=== PATIENT | female | born 1955 | race Caucasian/White ===

== ENCOUNTER → 2020-08-28 15:01 | Outpatient (CLI) | payer MEDICARE, SELFPAY ==
--- NOTE | 2020-08-28 15:36 | MRI_ITS ---
STUDY: MRI ORBITS WITH AND WITHOUT CONTRAST REASON FOR EXAM: Female, 65 years old. DIPLOPIA bilateral EYES X 4 WEEKS TECHNIQUE: Standardized fat and water weighted pulse sequences were obtained in all 3 orthogonal planes, pre-and post contrast administration. 15CC IV DOTAREM was administered for the contrast portion of the examination. COMPARISON: None. FINDINGS: Examination is mildly degraded by motion artifact, severely affecting coronal views of the orbits. Diagnostic information is available. Normal bilateral globes. Normal bilateral optic nerve sheath complexes and optic nerves. Normal bilateral intraconal and extraconal spaces. Normal bilateral extraocular muscles. Normal optic chiasm and post-chiasmatic tracts. Normal sella turcica, pituitary gland, infundibular stalk, and hypothalamus. Normal bilateral cavernous sinuses. Normal tectal plate and pineal gland. Normal flow voids within the major intracranial circulation suggesting patency by spin echo criteria. Normal size of the ventricles and extra-axial spaces for the patient''s age. Normal white matter tracts of the supratentorial brain. Normal bilateral basal ganglia. Normal thalami. There is no extra-axial fluid accumulation. Normal midbrain, adelaide and medulla. Normal cerebellum. Normal basal cisterns. MRI/Brain W/WO Contrast IMPRESSION: 1. Normal brain. 2. Normal orbits. Electronically Signed: Juan Gomez MD at 20:22 EDT Tel , Service support ,
[2020-08-28 15:46] LABS: CREATININE FINGERSTICK 0.9 mg/dL (0.55-1.02); EGFR FINGERSTICK > 60.0000 mL/min (>60)
== END ==
PROVIDERS: PCP Preventive Medicine Occupational Medicine; Referring Provider Ophthalmology; Visit Provider Ophthalmology
DX: H53.2 Diplopia (principal)
CPT/HCPCS: 70553; A9575

== ENCOUNTER → 2020-09-10 13:32 | Outpatient (CLI) | payer MEDICARE, SELFPAY ==
--- NOTE | 2020-09-10 13:33 | CDU_ITS ---
Reason For Study: DIPLOPIA Rt. Velocities/BP Lt. Velocities/BP Prox CCA 70/10 cm/sec. Prox CCA 117/25 cm/sec. Mid CCA 95/23 cm/sec. Mid CCA 87/20 cm/sec. Dist CCA 74/22 cm/sec. Dist CCA 115/27 cm/sec. Prox ICA 50/18 cm/sec. Prox ICA 56/15 cm/sec. Mid ICA 72/25 cm/sec. Mid ICA 72/27 cm/sec. Dist ICA 44/19 cm/sec. Dist ICA 68/26 cm/sec. Rt. ICA/CCA = 1.0. Lt. ICA/CCA = .6. Prox ECA 126/22 cm/sec. Prox ECA 84/13 cm/sec. Rt. Vert. 11/1 cm/sec. Lt. Vert. 36/12 cm/sec. Right Extracranial There is homogeneous, smooth atherosclerotic plaque noted in the right common carotid artery. There is heterogeneous, irregular atherosclerotic plaque noted in the right internal carotid artery. There is homogeneous, smooth atherosclerotic plaque noted in the right external carotid artery. Antegrade flow is noted in the right vertebral artery. Left Extracranial There is homogeneous, smooth atherosclerotic plaque noted in the left common carotid artery. There is heterogeneous, smooth atherosclerotic plaque noted in the left internal carotid artery. There is homogeneous, smooth atherosclerotic plaque noted in the left external carotid artery. Antegrade flow is noted in the left vertebral artery. Procedure Carotid Duplex 47819. Exam performed in department. VL/Carotid Duplex Ultrasound Interpretation Summary Irregular heterogenous plaque at the proximal right internal carotid artery wit h less than 50% stenosis Less than 50% stenosis right external carotid artery Low flow right vertebral with 11 cm/s peak systolic flow Heterogenous smooth plaque of the proximal left internal carotid artery with le ss than 50% stenosis Less than 50% stenosis left external carotid artery Patent and antegrade left vertebral Ordering Physician: Abraham Maldonado Referring Physician: NIECY HUDDLESTON Performed By: Reena Fuller, ARACELI, RVT
== END ==
PROVIDERS: PCP Preventive Medicine Occupational Medicine; Referring Provider Ophthalmology; Visit Provider Ophthalmology
DX: H53.2 Diplopia (principal)
CPT/HCPCS: 93880

== ENCOUNTER → 2020-09-23 15:38 | Outpatient (CLI) | payer MEDICARE, SELFPAY ==
[2020-09-23 12:45] VITALS: BMI 28.4
== END ==
PROVIDERS: PCP Preventive Medicine Occupational Medicine; Visit Provider Surgery
DX: Z11.59 Encounter for screening for other viral diseases (principal)
CPT/HCPCS: 87635; C9803; U0002

== ENCOUNTER → 2020-10-05 10:06 | Outpatient (CLI) | payer MEDICARE, SELFPAY ==
[2020-09-23 12:45] VITALS: BMI 28.4
--- NOTE | 2020-10-05 10:07 | MRI_ITS ---
STUDY: MRA NECK WITH AND WITHOUT CONTRAST REASON FOR EXAM: Female, 65 years old. DIPLOPIA TECHNIQUE: 3-D [id number]-cy-zohvpn (TOF) imaging was performed in an 1.5 T MRI scanner. dotarem 15ml IV was administered for the contrast enhanced images. COMPARISON: None. FINDINGS: RIGHT CAROTID ARTERIES: Antegrade flow within the right common carotid artery (CCA). Antegrade flow within the right carotid bulb. Antegrade flow within the right internal carotid (ICA) artery. Antegrade flow within the visualized cervical portion of the right internal carotid artery. LEFT CAROTID ARTERIES: Antegrade flow within the left common carotid artery (CCA). Antegrade flow within the left common carotid bulb. Antegrade flow within the origin of the left internal carotid (ICA) artery. Antegrade flow within the visualized cervical portion of the left internal carotid artery. VERTEBRAL ARTERIES: Antegrade flow within the bilateral vertebral artery. MRI/MRA Neck WITH and W/O Contrast IMPRESSION: No demonstrated occlusion or significant stenosis. Electronically Signed: Brianna Block MD at 8:19 EDT Tel , Service support ,
--- NOTE | 2020-10-05 10:07 | MRI_ITS ---
STUDY: MRA OF THE HEAD WITHOUT CONTRAST REASON FOR EXAM: Female, 65 years old. diplopia. diplopia TECHNIQUE: 3-D [id number] (TOF) imaging was performed with MIPs. The study was performed unenhanced. COMPARISON: None. FINDINGS: Patent right cavernous carotid artery. Patent left cavernous carotid artery. Patent right A1 segments of the anterior cerebral artery. Patent left A1 segments of the anterior cerebral artery. Unremarkable anterior communicating artery (ACOM) region. Normal bilateral A2 segments of the anterior cerebral arteries. Patent right M1 and M2 segments of the middle cerebral arteries, with a unremarkable M1 bifurcation. Patent left M1 and M2 segments of the middle cerebral arteries, with a unremarkable M1 bifurcation. 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 There is non-visualization of the left posterior communicating artery (PCOM). Patent basilar artery with a normal basilar bifurcation. Patent bilateral posterior cerebral arteries. MRI/MRA Head ONLY without Contrast IMPRESSION: No large vessel occlusion. Electronically Signed: Brianna Block MD at 8:19 EDT Tel , Service support ,
== END ==
PROVIDERS: PCP Preventive Medicine Occupational Medicine; Referring Provider Surgery; Visit Provider Surgery
DX: H53.2 Diplopia (principal); R42 Dizziness and giddiness
CPT/HCPCS: 70544; 70549; A9575; A4216

== ENCOUNTER → 2020-10-27 10:28 | Outpatient (CLI) | payer MEDICARE, SELFPAY ==
[2020-10-27 09:10] VITALS: BMI 29.0
[2020-10-27 12:32] LABS: Hematocrit 44.3 % (37-47); Hemoglobin 14.4 g/dL (12.0-15.0); Mean Corp Hgb Conc 32.5 g/dL (32-36); Mean Corpuscular Hgb 31.7 pg (27.0-32.0); Mean Corpuscular Volume 97.6 fL (81-99); Mean Platelet Vol. 11.9 fl (6.2-12.0); Platelet Count 206 K/mm3 (150-450); RBC Distribution Width CV 13.4 % (11.6-14.6); RBC Distribution Width SD 48.6 fl (35.1-43.9); Red Blood Count 4.54 M/mm3 (4.2-5.4)
[2020-10-27 12:43] LABS: Erythrocyte Sedimentation Rate 2 mm/hr (0-30)
[2020-10-27 12:48] LABS: Vitamin B12 1370 pg/mL (211-911)
[2020-10-27 13:36] LABS: ALB/GLOB Ratio 1.4 RATIO (0.9-2.4); AST(SGOT) 15 U/L (15-37); Alanine Aminotransfer ALT/SGPT 28 U/L (13-56); Albumin, Serum 4.2 g/dL (3.2-5.0); Alkaline Phosphatase 40 U/L (45-117); Anion Gap 4 (5-15); BUN 13 mg/dL (7-18); Calcium,Total 9.3 mg/dL (8.5-10.1); Chloride 109 mmol/L (98-107); Creatinine, Serum 0.76 mg/dL (0.55-1.02); EST Glomerular Filtration Rate 80 mL/min (>60); Est Glom Filt Rate - Afr Amer 97 mL/min (>60); Globulin 3.1 g/dL (2.2-4.2); Glucose 103 mg/dL (74-106); Potassium 3.9 mmol/L (3.5-5.1); Protein, Total 7.3 g/dL (6.4-8.2); Sodium Level 139 mmol/L (136-145)
[2020-10-31 03:07] LABS: Free Kappa Light Chains 16.2 mg/L (3.3-19.4); Free Lambda Light Chains 13.2 mg/L (5.7-26.3)
[2020-10-31 09:15] LABS: ACHR Recep AB, Blocking 15 % (0-25); Vitamin B1, Thiamine 160.3 nmol/L (66.5-200.0)
== END ==
PROVIDERS: PCP Preventive Medicine Occupational Medicine; Referring Provider Psychiatry & Neurology Neurology; Visit Provider Psychiatry & Neurology Neurology
DX: H53.2 Diplopia (principal); G62.9 Polyneuropathy, unspecified
CPT/HCPCS: 36415; 80053; 82607; 82746; 83519; 83883; 84425; 85027; 85652

== ENCOUNTER → 2020-12-23 06:03 | Outpatient (CLI) | payer MEDICARE, SELFPAY ==
[2020-10-27 09:10] VITALS: BMI 29.0
--- NOTE | 2020-12-23 15:51 | NEURO ---
NCS and/or EMG Patient Report Ordering Doctor: Cesar Moore DATE OF SERVICE: 12/23/20 Jenny presents for electrodiagnostic testing of the lower limbs. She has bilateral leg pain, aching in nature. She does report a history of back surgery. Electrodiagnostic findings:Normal peroneal and tibial motor studies bilaterally. F waves are within normal limits. Sensory responses are normal bilaterally. On needle EMG, all muscles tested in the lower limbs, as well as lumbar paraspinals, showed no evidence of denervation with normal motor unit action potentials Electrodiagnostic impression:This is a normal electrodiagnostic study in the lower limbs. There is no electrodiagnostic evidence for peripheral neuropathy or lumbosacral radiculopathy
== END ==
PROVIDERS: PCP Preventive Medicine Occupational Medicine; Referring Provider Psychiatry & Neurology Neurology; Visit Provider Psychiatry & Neurology Neurology
DX: H53.2 Diplopia (principal); G62.9 Polyneuropathy, unspecified
CPT/HCPCS: 95886; 95913